=== PATIENT | female | born 1995 | race Two or more races ===

== ENCOUNTER 2021-07-11 13:17 | Emergency (ER) | payer BC ==
[~2021-07-11] VITALS: Ht 149.9 cm; Wt 72.6 kg
[2021-07-11 13:17] VITALS: BP 135/84
== END 2021-07-11 14:53 | disposition left against medical advice (07) ==
LOC: ER 13:17
DX: R42 Dizziness and giddiness (principal); R07.89 Other chest pain; R11.0 Nausea; Z53.21 Procedure and treatment not carried out due to patient leaving prior to being seen by health care provider